=== PATIENT | male | born 1975 | race Caucasian/White ===

== ENCOUNTER 2025-04-30 06:33 | Day surgery (SDC) | payer BC ==
[2025-04-26 10:09] VITALS: BMI 32.4
[2025-04-30 11:38] VITALS: RESP 18
[2025-04-30 12:17] LABS: INR 1.17 (0.83-1.09); PROTHROMBIN TIME (PATIENT) 12.8 SEC (9.7-13.0)
[2025-04-30] MEDS ORDERED: LIDOCAINE 1%/EPI 1:100000 (20 ML MULTI DOSE VIAL) ONE (12:49)
[2025-04-30] MEDS ORDERED: BUPIVACAINE HCL/PF 0.5% (5MG/ML) 10 ML VIAL ONE (12:49)
[2025-04-30] MEDS ORDERED: PROPOFOL 40 ML ONE ×2 (13:34→13:43)
[2025-04-30] MEDS: LIDOCAINE 1%/EPI 1:100000 (20 ML MULTI DOSE VIAL) IJ ONE (13:39)
[2025-04-30] MEDS: BUPIVACAINE HCL/PF 0.5% (5MG/ML) 10 ML VIAL IJ ONE (13:39)
[2025-04-30] MEDS ORDERED: ROCURONIUM BROMIDE 50 MG/5 ML SYRINGE ONE (13:49)
[2025-04-30] MEDS: BACITRACIN ZINC 15 GM TUBE TOPICAL OINTMENT TP ONE (13:56)
[2025-04-30 16:45] VITALS: TEMP 97.8
[2025-04-30 16:46] VITALS: BP 109/62; PULSE 62
== END 2025-04-30 15:10 | disposition home or self-care (01) ==
LOC: JASU-SURG 06:33
PROVIDERS: ATTEND Surgery
PROC: 0HB0XZZ Excision of Scalp Skin, External Approach (ICD-10-PCS; principal; 2025-04-30 13:30)
DX: L72.12 Trichodermal cyst (principal)
CPT/HCPCS: 36415; 85610; 88304-TC